=== PATIENT | female | born 1970 | race Caucasian/White ===

== ENCOUNTER 2018-12-11 10:28 | Outpatient (CLI) | payer BC ==
[2018-12-11 15:10] LABS: Bacteria/HPF 1+ HPF (None Seen); Bilirubin Negative (Negative); Blood, Urine Negative (Negative); Clarity Clear (Clear); Glucose, Urine (Dipstick) Normal (Negative); Leukocyte Negative Leu/uL (Negative); Nitrite Negative (Negative); Protein, Urine (Dipstick) Negative (Neg-Trace); Squamous Epithelial 0-3 HPF (0-3); WBC/HPF 0-3 HPF (0-3)
[2018-12-11 15:11] LABS: #Eosinphils 0.4 thou/uL (0.0-0.7); #Lymphocytes 2.3 thou/uL (1.20-3.40); #Monocytes 0.4 thou/uL (0.11-0.59); #Neutrophils 3.1 thou/uL (1.40-6.50); %Basophils 0.7 % (0.0-1.0); %Eosinophils 6.1 % (0.0-10.0); %Lymphocytes 36.2 % (21.0-51.0); %Monocytes 6.8 % (0.0-10.0); %Neutrophils 50.3 % (42.0-75.0); Hemoglobin 13.7 g/dL (12.0-16.0); Mean Corpuscular Hemoglobin 32.9 pg (27.0-31.0); Mean Corpuscular Volume 93.9 fL (78.0-98.0); Mean Platelet Volume 8.2 fL (7.4-10.4); Platelet Count 183 thou/uL (130-400); RBC Distribution Width 11.5 % (11.5-14.5); Red Blood Cell (RBC) Count 4.16 mill/uL (4.20-5.40); White Blood Cell (WBC) Count 6.2 thou/uL (4.8-10.8)
[2018-12-11 15:26] LABS: BHCG - Serum Negative (NEGATIVE); Pregs Control Background? CLEAR/WHITE (CLR/WHITE); Pregs Control Bar Appear? YES (CONTROL BAR)
== END 2018-12-11 10:29 | disposition home or self-care (01) ==
LOC: LABBT 10:28
PROVIDERS: ATTEND Orthopaedic Surgery Hand Surgery
DX: Z01.812 Encounter for preprocedural laboratory examination (principal); G56.01 Carpal tunnel syndrome, right upper limb
CPT/HCPCS: 81001; 84703; 85025

== ENCOUNTER 2018-12-15 06:17 | Day surgery (SDC) | payer BC ==
[2018-12-11 14:20] VITALS: BMI 26.6
[2018-12-15] MEDS ORDERED: Bupivacaine PF 0.5% 30 ML VIAL ONE (08:37)
[2018-12-15] MEDS ORDERED: Bacitracin Zinc Ointment 30 gm TUBE ONE (08:37)
[2018-12-15] MEDS ORDERED: Sodium Chloride 0.9% 10 ML ONE (08:37)
[2018-12-15] MEDS ORDERED: Betamet Acet/Betamet Na Ph 30 MG/5 ML VIAL ONE (08:37)
[2018-12-15] MEDS ORDERED: Midazolam HCl 2 mg/2 ml Vial ONE ×2 (08:47→08:49)
[2018-12-15] MEDS ORDERED: Fentanyl 100 MCG/2 ML VIAL ONE ×2 (08:49→08:55)
[2018-12-15] MEDS ORDERED: Ketorolac Tromethamine 30 MG/ML VIAL ONE ×2 (09:56→09:57)
--- NOTE | 2018-12-15 16:04 | OP ---
DATE OF PROCEDURE: 12/15/2018 PREOPERATIVE DIAGNOSIS: Right carpal tunnel syndrome. POSTOPERATIVE DIAGNOSIS: Right carpal tunnel syndrome. FINDINGS: Median nerve compression with very tight transverse carpal ligament with hourglass formation over 1.5 cm segment of the center of the transcarpal ligament. No flexor tenosynovitis. TOURNIQUET TIME: 17 minutes. ESTIMATED BLOOD LOSS: 5 mL. ANESTHESIA: General LMA technique augmented by 20 mL of 0.5% Marcaine nish-incisional block (10 before the incision and 10 after the wound was closed). DESCRIPTION OF PROCEDURE: After successful anesthesia listed above, the limb was prepped and draped. Time-out was done appropriately. Tourniquet lasted 17 minutes at 250 mmHg pressure. We then outlined incision beginning at the tip of the ring finger in line with the distal transverse carpal ligament and Hernandez's cardinal line extended to 0.5 mm distal to the volar wrist flexion crease. We did this with a sharp knife and after penetrating the glabrous skin, identified the fascia for the palmaris longus and went slightly ulnar to this to enter the central portion of the transcarpal ligament. We released it from the midpoint distally with a combination of tenotomy scissors and [place] blade, and did the same thing for the midpoint proximally. There was no further transverse carpal ligament intact at the end of the procedure. Inspection revealed the hourglass formation with early stippling over 1.5 cm area of median nerve. The flexor tendons did not show tenosynovitis, so no tenosynovectomy was accomplished. Tourniquet was deflated. Hemostasis obtained. We closed the incision with interrupted 4-0 nylon in a mattress pattern just prior to placing 2.5 mL of Cel[place] along the median nerve within the canal. Bulky dressing was applied and the patient left the operating room without evidence of anesthetic or operative complication. Job ID: [id number]
== END 2018-12-15 10:50 | disposition home or self-care (01) ==
LOC: SDC 06:17
PROVIDERS: ATTEND Orthopaedic Surgery Hand Surgery
PROC: 01N50ZZ Release Median Nerve, Open Approach (ICD-10-PCS; principal; 2018-12-15)
DX: G56.01 Carpal tunnel syndrome, right upper limb (principal); F41.9 Anxiety disorder, unspecified; F32.9 Major depressive disorder, single episode, unspecified; F43.10 Post-traumatic stress disorder, unspecified; M54.16 Radiculopathy, lumbar region; G43.909 Migraine, unspecified, not intractable, without status migrainosus; Z79.891 Long term (current) use of opiate analgesic; Z79.899 Other long term (current) drug therapy; Z88.8 Allergy status to other drugs, medicaments and biological substances; Z91.02 Food additives allergy status; Z98.1 Arthrodesis status
CPT/HCPCS: J0690; J0702; J1885; J2250; J3010; J3490; S0020